=== PATIENT | female | born 1985 ===

== ENCOUNTER 2021-12-10 08:21 | Outpatient (CLI) | payer OTHER | END 2021-12-10 09:35 | disposition home or self-care (01) | LOC: PRENATAL 08:21 | PROVIDERS: ATTEND Obstetrics & Gynecology Maternal & Fetal Medicine | DX: O36.80X0 Pregnancy with inconclusive fetal viability, not applicable or unspecified (principal); Z36.0 Encounter for antenatal screening for chromosomal anomalies; O09.529 Supervision of elderly multigravida, unspecified trimester; Z3A.11 11 weeks gestation of pregnancy ==

== ENCOUNTER 2022-05-28 14:13 | Outpatient (CLI) | payer OTHER | END 2022-05-28 16:20 | disposition home or self-care (01) | LOC: PRENATAL 14:13 | PROVIDERS: ATTEND Obstetrics & Gynecology Maternal & Fetal Medicine | DX: O26.849 Uterine size-date discrepancy, unspecified trimester (principal); O35.9XX0 Maternal care for (suspected) fetal abnormality and damage, unspecified, not applicable or unspecified; Z3A.35 35 weeks gestation of pregnancy ==

== ENCOUNTER 2022-06-16 12:15 | Inpatient (IN) | payer OTHER ==
[~2022-06-16] VITALS: Ht 160 cm; Wt 73.5 kg
[2022-06-18] MEDS ORDERED: PRENATABS RX T1 EACH PO (13:02)
== END 2022-06-20 14:07 | disposition home or self-care (01) | DRG 788 ==
LOC: OB/GYN 12:15 → LDR 06-18 12:32 → OB/GYN 06-18 13:41 → LDR 06-18 14:44 → O/R 06-18 17:25 → OB/GYN 06-18 17:33
PROVIDERS: ADMIT Obstetrics & Gynecology; ATTEND Obstetrics & Gynecology
PROC: 4A1HXCZ Monitoring of Products of Conception, Cardiac Rate, External Approach (ICD-10-PCS; 2022-06-18)
PROC: 10D00Z1 Extraction of Products of Conception, Low, Open Approach (ICD-10-PCS; principal; 2022-06-18 07:00)
DX: O32.1XX0 Maternal care for breech presentation, not applicable or unspecified (principal); Z3A.39 39 weeks gestation of pregnancy; Z37.0 Single live birth; O99.824 Streptococcus B carrier state complicating childbirth